=== PATIENT | male | born 1955 | race Caucasian/White ===

== ENCOUNTER 2018-12-05 08:10 | Day surgery (SDC) | payer OTHER ==
[2018-12-05] MEDS ORDERED: FENTAnyl 50 MCG/ML VIAL (10:57)
[2018-12-05] MEDS ORDERED: MIDAZOLAM 1 MG/ML 2 ML INJ ×2 (10:57)
== END 2018-12-05 11:44 | disposition home or self-care (01) ==
LOC: GIL 08:10
DX: K92.1 Melena (principal); D12.5 Benign neoplasm of sigmoid colon; K64.8 Other hemorrhoids; D17.79 Benign lipomatous neoplasm of other sites; K21.9 Gastro-esophageal reflux disease without esophagitis; K29.50 Unspecified chronic gastritis without bleeding; I10 Essential (primary) hypertension
CPT/HCPCS: 43239; 88305; 88312